=== PATIENT | male | born 1970 | race African-American/Black ===

== ENCOUNTER 2017-06-22 01:22 | Emergency (ER) | payer MEDICAID ==
[~2017-06-22] VITALS: Ht 162.6 cm; Wt 68.0 kg
[2017-06-22 01:50] LABS: BASOPHILS % 1.1 % (0.0-2.0); HEMATOCRIT. 41.3 % (42.0-52.0); HEMOGLOBIN. 14.1 g/dL (14.0-18.0); LYMPHOCYTES % 44.1 % (20.0-50.0); MEAN CORPUSCULAR HEMOGLOBIN 35.1 pg (28.0-32.0); MEAN CORPUSCULAR VOLUME 102.6 fL (80.0-94.0); MEAN PLATELET VOLUME 7.2 fl (7.4-10.4); MONOCYTES % 10.1 % (2.0-8.0); NEUTROPHILS % 41.7 % (40.0-76.0); PLATELET 291 x1000/uL (130-400); RED BLOOD CELL COUNT 4.03 mill/uL (4.7-6.1); RED CELL DISTRIBUTION WIDTH 13.5 % (11.6-14.6)
[2017-06-22 01:56] LABS: CHLORIDE 105 mEq/L (98-107)
[2017-06-22 02:00] LABS: ETHANOL BLOOD 261 mg/dL
[2017-06-22 03:13] VITALS: BP 141/88
== END 2017-06-22 03:25 | disposition home or self-care (01) ==
LOC: ER 01:22
DX: T51.0X1A Toxic effect of ethanol, accidental (unintentional), initial encounter (principal); E11.9 Type 2 diabetes mellitus without complications; F17.200 Nicotine dependence, unspecified, uncomplicated; F12.10 Cannabis abuse, uncomplicated; V49.9XXA Car occupant (driver) (passenger) injured in unspecified traffic accident, initial encounter; Y93.89 Activity, other specified; Y92.89 Other specified places as the place of occurrence of the external cause; Y99.8 Other external cause status
CPT/HCPCS: 36415; 80053; 85025; 93005; 99285; G0482

== ENCOUNTER 2018-03-15 16:57 | Emergency (ER) | payer MEDICAID, OTHER ==
[~2018-03-15] VITALS: Ht 162.6 cm; Wt 69.0 kg
[2018-03-15] MEDS ORDERED: IBUPROFEN 600MG TABLET PO ONE (20:30)
[2018-03-15 21:29] VITALS: BP 137/85
== END 2018-03-15 22:59 | disposition home or self-care (01) ==
LOC: ER 16:57
DX: R51 Headache (principal); E11.9 Type 2 diabetes mellitus without complications; F17.200 Nicotine dependence, unspecified, uncomplicated
CPT/HCPCS: 99284

== ENCOUNTER 2022-06-22 14:53 | Emergency (ER) | payer MEDICAID, OTHER ==
[~2022-06-22] VITALS: Ht 162.6 cm; Wt 83.0 kg
[2022-06-22] MEDS ORDERED: KETOROLAC 30MG/ML VIAL IM ONE (16:45)
[2022-06-22] MEDS ORDERED: LIDOCAINE 5% PATCH TOP SCH (16:45)
[2022-06-22] MEDS ORDERED: LIDO700A15 TP (17:09)
[2022-06-22] MEDS ORDERED: NAPR-681 MT (17:09)
[2022-06-22 17:26] VITALS: BP 173/100
== END 2022-06-22 17:32 | disposition home or self-care (01) ==
LOC: ER 15:06
DX: S80.02XA Contusion of left knee, initial encounter (principal); S20.212A Contusion of left front wall of thorax, initial encounter; M54.50 Low back pain, unspecified; F12.90 Cannabis use, unspecified, uncomplicated; V43.52XA Car driver injured in collision with other type car in traffic accident, initial encounter; Y93.89 Activity, other specified; Y92.89 Other specified places as the place of occurrence of the external cause; Y99.8 Other external cause status
CPT/HCPCS: 71045; 73560; 93005; 96372; 99284; J1885